=== PATIENT | male | born 1960 | race American Indian/Alaskan Native ===

== ENCOUNTER 2016-05-13 14:56 | Emergency (ER) | payer OTHER ==
[2016-05-13] MEDS ORDERED: ROCEPHIN IM ONE (19:08)
[2016-05-13] MEDS ORDERED: XYLOCAINE 1% MPF 5 mL INFILTRATI ONE (19:08)
--- NOTE | 2016-05-13 19:17 | Emergency Department Report ---
- General Chief Complaint: Upper Respiratory Infection Stated Complaint: FLU/CHRONIC PAIN Time Seen by Provider: 05/13/16 18:56 Source: patient Mode of arrival: Ambulatory Limitations: No Limitations - History of Present Illness MD Complaint: fever, cough, sore throat -: week(s) Severity scale (0 -10): 4 Quality: aching Consistency: intermittent Context: sick contacts Associated Symptoms: fever, chills, myalgias, headache, sore throat, cough, nausea, vomiting - Related Data Previous Rx's Medication Instructions Recorded Last Taken Type Acetamin/Codeine 120-12Mg/5 ml 5 ml PO TID PRN #60 oz 05/13/16 Unknown Rx [Tylenol/Codeine] Azithromycin [Zithromax Z-KATHRIN] 250 mg PO QDAY #6 tablet 05/13/16 Unknown Rx Ondansetron [Zofran TAB] 4 mg PO Q8HR PRN #10 tablet 05/13/16 Unknown Rx predniSONE [Deltasone] 50 mg PO QDAY #10 tab 05/13/16 Unknown Rx Allergies Allergy/AdvReac Type Severity Reaction Status Date / Time No Known Allergies Allergy Unverified 05/13/16 15:48 ED Review of Systems ROS: Stated complaint: FLU/CHRONIC PAIN Other details as noted in HPI Constitutional: chills, fever, malaise Eyes: denies: eye pain, eye discharge, vision change ENT: denies: ear pain, throat pain Respiratory: denies: cough, shortness of breath, wheezing Gastrointestinal: nausea, vomiting. denies: abdominal pain Skin: denies: rash, lesions Neurological: denies: headache, weakness, paresthesias ED Past Medical Hx - Past Medical History Previous Medical History?: No - Surgical History Additional Surgical History: NAIL STUCK IN NECK - Medications Home Medications: Home Medications Medication Instructions Recorded Confirmed Last Taken Type Acetamin/Codeine 120-12Mg/5 ml 5 ml PO TID PRN #60 oz 05/13/16 Unknown Rx [Tylenol/Codeine] Azithromycin [Zithromax Z-KATHRIN] 250 mg PO QDAY #6 tablet 05/13/16 Unknown Rx Ondansetron [Zofran TAB] 4 mg PO Q8HR PRN #10 tablet 05/13/16 Unknown Rx predniSONE [Deltasone] 50 mg PO QDAY #10 tab 05/13/16 Unknown Rx ED Physical Exam - General Limitations: No Limitations General appearance: alert, in no apparent distress - Head Head exam: Present: atraumatic, normocephalic - Eye Eye exam: Present: normal appearance - ENT ENT exam: Present: mucous membranes moist - Neck Neck exam: Present: normal inspection - Respiratory Respiratory exam: Present: wheezes. Absent: respiratory distress, rales, chest wall tenderness, accessory muscle use, decreased breath sounds, prolonged expiratory - Cardiovascular Cardiovascular Exam: Present: regular rate - GI/Abdominal GI/Abdominal exam: Present: soft, normal bowel sounds - Extremities Exam Extremities exam: Present: normal inspection - Back Exam Back exam: Absent: CVA tenderness (R), CVA tenderness (L) - Neurological Exam Neurological exam: Present: alert, oriented X3 - Psychiatric Psychiatric exam: Present: normal affect, normal mood - Skin Skin exam: Present: warm, dry, intact, normal color. Absent: rash ED Course Vital Signs 05/13/16 15:48 Temperature 98.2 F Pulse Rate 95 H Respiratory 20 Rate Blood Pressure 131/81 O2 Sat by Pulse 99 Oximetry Critical care attestation.: If time is entered above; I have spent that time in minutes in the direct care of this critically ill patient, excluding procedure time. ED Disposition Clinical Impression: URI, acute Disposition: DISCHARGED TO HOME OR SELFCARE Is pt being admited?: No Condition: Stable Additional Instructions: Most go to the health department to be checked for communicable diseases!!!!! Prescriptions: Acetamin/Codeine 120-12Mg/5 ml [Tylenol/Codeine] 5 ml PO TID PRN #60 oz PRN Reason: Pain Azithromycin [Zithromax Z-KATHRIN] 250 mg PO QDAY #6 tablet Ondansetron [Zofran TAB] 4 mg PO Q8HR PRN #10 tablet PRN Reason: Nausea And Vomiting predniSONE [Deltasone] 50 mg PO QDAY #10 tab Referrals: PRIMARY CARE,MD [Primary Care Provider] - 3-5 Days Forms: Work/School Release Form(ED) Time of Disposition: 19:18
[2016-05-13 20:46] VITALS: BP 117/83
--- NOTE | 2016-05-14 07:37 | XRay Report ---
CHEST X-RAY, 2 VIEWS History: Cough. Findings: No comparison. The lungs are hyperinflated consistent with moderate emphysematous changes. There is a focal airspace opacity in the posterior segment of the left lower lobe. This may represent an early infiltrate. The remainder of the lungs are clear. No pleural effusion or pneumothorax. Heart and mediastinal structures are within normal limits. Normal bony thorax. Impression: Emphysematous changes. Probable early left lower lobe infiltrate. If further evaluation is needed, CT chest with contrast is recommended.
== END 2016-05-13 20:35 | disposition home or self-care (01) ==
LOC: EDSEX → ED 14:56
DX: J06.9 Acute upper respiratory infection, unspecified (principal); R51 Headache; R11.2 Nausea with vomiting, unspecified; Z79.2 Long term (current) use of antibiotics; Z79.899 Other long term (current) drug therapy; Z98.890 Other specified postprocedural states
CPT/HCPCS: 71020; 96372; 99283; J0696